=== PATIENT | male | born 1935 | race Hispanic/Latino ===

== ENCOUNTER 2018-05-18 08:19 | Day surgery (SDC) | payer MEDICARE ==
[2018-05-18] MEDS ORDERED: NACL 0.9% 500 ML 500 ML IV SCH (10:00)
[2018-05-18] MEDS ORDERED: ECOTRIN PO ONE (10:10)
[2018-05-18 10:28] LABS: Basophils # (Auto) 0.1 K/mm3 (0.0-0.1); Basophils % (Auto) 1.2 % (0.0-1.8); Eosinophils # (Auto) 0.5 K/mm3 (0.0-0.4); Eosinophils % (Auto) 5.8 % (0.0-4.3); Hematocrit 35.2 % (35.5-45.6); Hemoglobin 11.9 gm/dl (11.8-15.2); Lymphocytes # (Auto) 3.4 K/mm3 (1.2-5.4); Lymphocytes % (Auto) 40.7 % (13.4-35.0); Mean Corpuscular HGB Conc 34 % (32-34); Mean Corpuscular Volume 90 fl (84-94); Monocytes # (Auto) 0.7 K/mm3 (0.0-0.8); Platelet Count 224 K/mm3 (140-440); Red Cell Distribution Width 13.9 % (13.2-15.2)
[2018-05-18 10:42] LABS: INR 0.94 (0.87-1.13)
[2018-05-18 10:43] LABS: Partial Thromboplastin Time 28.2 Sec. (24.2-36.6)
[2018-05-18 10:46] LABS: BUN/Creatinine Ratio 19; Blood Urea Nitrogen 21 mg/dL (9-20); Calcium 9.6 mg/dL (8.4-10.2); Hemolysis Index 18
[2018-05-18] MEDS ORDERED: HEPARIN/NS 5000 UNIT/500ML(CATH LAB) 1,000 ML IR ONE (10:47)
[2018-05-18] MEDS ORDERED: NITROGLYCERIN SYRINGE 0 ML ONE (10:48)
[2018-05-18] MEDS: VERSED ONE ×2 (11:32→11:37)
[2018-05-18] MEDS: SUBLIMAZE ONE ×2 (11:32→11:37)
[2018-05-18] MEDS: XYLOCAINE 2% INFILTRATI ONE ×2 (11:33→11:34)
[2018-05-18] MEDS ORDERED: XYLOCAINE 2% INFILTRATI ONE (11:38)
--- NOTE | 2018-05-18 12:24 | Short Stay Summary ---
Short Stay Documentation Date of service: 05/18/18 - History H&P: obtained from office - Allergies and Medications Current Medications: Allergies No Known Allergies Allergy (Verified 05/18/18 09:55) Home Medications Medication Instructions Recorded Confirmed Last Taken Type Amlodipine Besylate [Norvasc] 2.5 mg PO QDAY 05/18/18 05/18/18 05/17/18 History Amlodipine-Benazepril 5-40 mg 1 cap PO QDAY 05/18/18 05/18/18 05/17/18 History Aspirin EC [Aspirin Enteric Coated 81 mg PO QDAY 05/18/18 05/18/18 05/17/18 History TAB] Clopidogrel Bisulfate [Plavix] 75 mg PO QDAY 05/18/18 05/18/18 Unknown History Donepezil HCl [Donepezil HCl Odt] 10 mg PO BID 05/18/18 05/18/18 05/17/18 History Meclizine [Antivert] 12.5 mg PO QDAY 05/18/18 05/18/18 05/17/18 History Memantine HCl 10 mg PO BID 05/18/18 05/18/18 Unknown History Oxybutynin [Ditropan] 5 mg PO BID 05/18/18 05/18/18 Unknown History Simvastatin [Zocor] 10 mg PO HS 05/18/18 05/18/18 05/17/18 History Tamsulosin [Flomax] 0.4 mg PO QDAY 05/18/18 05/18/18 05/17/18 History glipiZIDE [glipiZIDE ER] 2.5 mg PO QDAY 05/18/18 05/18/18 05/17/18 History Active Medications Sodium Chloride (Nacl 0.9% 500 Ml) 500 mls @ 50 mls/hr IV DIRECT PEDRO Stop: 05/18/18 19:59 Last Admin: 05/18/18 10:25 Dose: 50 mls/hr Documented by: - Physical exam General appearance: no acute distress Integumentary: no rash HEENT: Atraumatic Lungs: Clear to auscultation Breasts: deferred Heart: Regular rate Male Genitourinary: deferred Female Genitourinary: deferred Rectal Exam: deferred Extremities: no ischemia - Brief post op/procedure progress note Date of procedure: 05/18/18 Pre-op diagnosis: SOB Post-op diagnosis: same Procedure: LHC, RHC and LV Anesthesia: MAC Findings: See report Surgeon: LAKEISHA MARTINEZ Estimated blood loss: none Pathology: none Condition: stable - Hospital course Hospital course: Uneventful - Disposition Condition at discharge: Good Disposition: DC-01 TO HOME OR SELFCARE Short Stay Discharge Plan Activity: advance as tolerated Weight Bearing Status: Partial Weight Bearing Diet: low fat, low cholesterol, low salt, diabetic Follow up with: STEPHANIE ROSE MD [Primary Care Provider] - 7 Days
--- NOTE | 2018-05-18 12:30 | Cardiac Catherization Report ---
LEFT AND RIGHT HEART CATH ORDERING PHYSICIAN: Amber Hernández MD INDICATION: Stable angina, [place] class 3. PROCEDURES PERFORMED: 1. Selective left and right coronary angiography. 2. Left ventriculography. 3. Right heart catheterization with hemodynamic measurement and oxygen saturation run. DESCRIPTION OF PROCEDURE: After obtaining the consent, the patient was draped using sterile technique. A 2% lidocaine was injected into the left groin. Using micropuncture technique, a 6-Martiniquais vascular sheath was inserted into the left femoral artery and an 8-Martiniquais vascular sheath was inserted into the left femoral vein. A 6-Martiniquais JL4 catheter was used to selectively engage left coronary artery. A 6-Martiniquais JR4 catheter was used to selectively engage the right coronary artery. A 6-Martiniquais double dual-lumen pigtail was used to perform a hand injection LV gram and measure the gradient across the left ventricular outflow tract. A 7-Martiniquais Cinebar-Federico catheter was then used to measure right-sided hemodynamics and perform an oxygen saturation run. No complications occurred during the procedure. Estimated blood loss was minimal. SPECIMEN REMOVED: None. Total sedation administered with 2 mg of IV Versed and 50 mcg of IV fentanyl. Physician and patient [id number] sedation start time 11:32 a.m. Physician and patient [id number] sedation stop time is 12:15 p.m. Total sedation time is 43 minutes. FINDINGS: HEMODYNAMICS: 1. The aortic pressure was 156/58. The left ventricular systolic pressure was 156 mmHg. The left ventricular end-diastolic pressure was 18 mmHg. There was no significant gradient across the left ventricular outflow tract at rest or with Valsalva or post PVCs. 2. The mean pulmonary capillary wedge pressure was 9 mmHg. 3. The mean pulmonary artery pressure was 21 mmHg with a pulmonary artery systolic pressure of 34 and the pulmonary artery diastolic pressure of 13. The right ventricular systolic pressure is 36 mmHg with right ventricular end-diastolic pressure of 11 mmHg. 4. The mean right arterial pressure is 7 mmHg. 5. The pulmonary artery saturation was 61%, right ventricular saturation 63%, right atrial saturation 66%, and aortic saturation was 89%. 6. The [place] cardiac output is 6.04 liters per minute and the cardiac index of 3.57 liters per minute per meter square. CARDIAC STRUCTURES: The left ventricle is normal in size. The left ventricular ejection fraction is normal, estimated at 60%. CORONARY ANATOMY: 1. This is a right dominant circulation. 2. The left main is angiographically normal. 3. The left anterior descending artery has evidence of a long stent extending from the proximal into the mid segment of the LAD, mild in-stent restenosis noted throughout the LAD stent. The first and second diagonal arteries are moderate caliber vessels with no evidence of obstructive disease. The distal LAD tapers and wraps around the apex with no evidence of obstructive disease. 4. The left circumflex artery is patent. The left circumflex artery has mild diffuse nonobstructive luminal irregularities. 5. The right coronary artery is patent. The right coronary artery has evidence of a stent in the mid segment that is patent. No obstructive disease noted throughout the right coronary artery. IMPRESSION: 1. No evidence of obstructive coronary artery disease with a patent LAD and right coronary artery stent. 2. Normal left ventricular size and systolic function. 3. Normal right and left-sided filling pressures. 4. Normal pulmonary artery pressures. 5. Normal cardiac output. 6. No evidence of an intracardiac shunt. 7. No evidence of left ventricular outflow tract gradient to suggest aortic stenosis or hypertrophic cardiomyopathy. There is no evidence of an LVOT gradient at rest or with Valsalva or post-PVC to suggest any hypertrophic obstructive cardiomyopathy. The aortic pulse pressure post-PVC remains stable, suggesting negative [place] phenomenon broken is phenomenon. RECOMMENDATIONS: Follow up with referring submarine worker and consider noncardiac etiology for the patient's shortness of breath. JOB# [id number] DAMIAN/NOE
[2018-05-18 14:32] VITALS: BP 159/65
== END 2018-05-18 15:20 | disposition home or self-care (01) ==
LOC: CATHLABREC 08:19
PROVIDERS: ATTEND Internal Medicine
DX: I20.8 Other forms of angina pectoris (principal); R06.02 Shortness of breath; E78.00 Pure hypercholesterolemia, unspecified; I10 Essential (primary) hypertension; G47.30 Sleep apnea, unspecified; F41.9 Anxiety disorder, unspecified; F03.90 Unspecified dementia, unspecified severity, without behavioral disturbance, psychotic disturbance, mood disturbance, and anxiety; Z90.49 Acquired absence of other specified parts of digestive tract; Z85.46 Personal history of malignant neoplasm of prostate; Z98.890 Other specified postprocedural states; Z79.82 Long term (current) use of aspirin; Z79.899 Other long term (current) drug therapy; Z79.01 Long term (current) use of anticoagulants; Z98.49 Cataract extraction status, unspecified eye; Z86.73 Personal history of transient ischemic attack (TIA), and cerebral infarction without residual deficits; Z82.49 Family history of ischemic heart disease and other diseases of the circulatory system; Z95.5 Presence of coronary angioplasty implant and graft
CPT/HCPCS: 36415; 80048; 85025; 85610; 85730; 93005; 93010; 93460; 99156; 99157; C1751; C1760; C1894; J1644; J2250; J3010; J7040; Q9967